=== PATIENT | male | born 2000 ===

== ENCOUNTER 2021-12-16 15:14 | Emergency (ER) | payer OTHER ==
--- NOTE | 2021-12-16 16:59 | ED Physician Documentation ---
PD HPI HEADACHE - Stated complaint Stated Complaint: MIGRAINE - Chief complaint Chief Complaint: Neuro - History obtained from History obtained from: Patient - History of Present Illness Timing - onset: Today Timing - onset during: Sleep Timing - duration: Hours Timing - details: Abrupt onset, Still present Worst headache ever?: No: Worst headache ever? Location: Front, Right Quality: Throbbing Associated symptoms: Nausea. No: Fever, Stiff neck, Vomiting, Weakness, Numbness, Syncope, Seizure, Eye pain, Vision changes Improved by: Rest Worsened by: Light, Noise, Moving Contributing factors: No: Anticoagulated Similar symptoms before: Diagnosis (migraine) Recently seen: Not recently seen - Additional information Additional information: 21-year-old male with history of migraine headaches has developed a migraine this morning behind his left eye with some dull ache. He has some mild nausea he has not vomited. He usually has some Imitrex to take and he has not had this medication for some time. He called the nurse hotline was asked to come to the emergency department. The patient states that if he was not told that he would have stayed at home and try to sleep this off. Review of Systems Constitutional: denies: Fever Eyes: reports: Photophobia. denies: Decreased vision Ears: denies: Ear pain Nose: denies: Congestion Throat: denies: Sore throat Respiratory: denies: Cough GI: reports: Nausea. denies: Vomiting PD PAST MEDICAL HISTORY - Past Medical History Past Medical History: No - Past Surgical History Past Surgical History: No - Present Medications Home Medications: Ambulatory Orders Medication Instructions Recorded Confirmed Dextroamphetamine/Amphetamine 25 mg ORAL DAILY 12/16/21 12/16/21 [Adderall 12.5 mg Tablet] SUMAtriptan [Imitrex] 25 mg PO ONCE PRN #13 tablet 12/16/21 - Allergies Allergies/Adverse Reactions: Allergies Allergy/AdvReac Type Severity Reaction Status Date / Time No Known Drug Allergies Allergy Verified 12/16/21 15:24 - Social History Does the pt smoke?: No Smoking Status: Never smoker PD ED PE NORMAL - Vitals Vital signs reviewed: Yes (Hypertensive mild) - General General: Alert and oriented X 3, No acute distress, Well developed/nourished - HEENT HEENT: Atraumatic, PERRL, EOMI, Ears normal - Neck Neck: Supple, no meningeal sign, No bony TTP - Cardiac Cardiac: RRR, No murmur - Respiratory Respiratory: No respiratory distress, Clear bilaterally - Abdomen Abdomen: Soft, Non tender - Back Back: No CVA TTP, No spinal TTP - Derm Derm: Normal color, Warm and dry, No rash - Extremities Extremities: No deformity, No edema - Neuro Neuro: Alert and oriented X 3, apprentice pattern maker 2-12 intact, No motor deficit, No sensory deficit, Normal speech Eye Opening: Spontaneous Motor: Obeys Commands Verbal: Oriented GCS Score: 15 - Psych Psych: Normal mood, Normal affect Results - Vitals Vitals: Vital Signs - 24 hr 12/16/21 15:24 Temperature 36.1 C L Heart Rate 70 Respiratory 16 Rate Blood Pressure 128/82 H O2 Saturation 100 Oxygen O2 Source Room air PD MEDICAL DECISION MAKING - ED course Complexity details: considered differential, d/w patient ED course: 21-year-old male with a history of migraines has a migraine headache today and he is out of his Imitrex. He would prefer to have a prescription for his Imitrex and return home to sleep this off. Departure - Departure Disposition: 01 Home, Self Care Clinical Impression: Migraine Qualifiers: Migraine type: with aura Status migrainosus presence: without status migrainosus Intractability: not intractable Qualified Code(s): G43.109 - Migraine with aura, not intractable, without status migrainosus Condition: Stable Instructions: ED Headache Migraine Follow-Up: [facility] [Provider Group] Prescriptions: SUMAtriptan [Imitrex] 25 mg PO ONCE PRN #13 tablet PRN Reason: Headache Comments: Max, today it looks like you have a migraine headache and we have E scribed Imitrex to the [facility] in [place]. Forms: Activity restrictions
[2021-12-16 17:12] VITALS: BP 126/80
== END 2021-12-16 17:11 | disposition home or self-care (01) ==
LOC: ED 15:14
DX: G43.109 Migraine with aura, not intractable, without status migrainosus (principal)
CPT/HCPCS: 99282; 99284

== ENCOUNTER 2022-10-12 14:03 | Outpatient (CLI) | payer OTHER ==
[2022-10-12 21:38] VITALS: BP 128/72
--- NOTE | 2022-10-12 21:38 | SLEEP CARE CONSULTATION ---
Information from patient questionnaire entered by Jenna Leach. I have reviewed and concur with the information entered by Jenna Leach. This document represents the service I personally performed and the decisions made by me, Rex Mejía MD, [facility]. History of Present Illness Service Date and Time: 10/12/2022 1403 Reason for Visit: New patient Chief Complaint: reports: Insomnia, Unrefreshed sleep, Observed pauses in breathing Date of Onset: 2013 Usual bedtime: 1-2AM Time it takes to fall asleep: NOT SURE Snores at night: Yes Sleeps alone due to snoring: No Number of times waking at night: 1-2 Reasons for waking at night: reports: Other (NOISE DRY MOUTH UNKNOWN REASONS) Toss, Turn, or Twitch while sleeping: Yes Recalls having dreams: No Usually gets out of bed at: 10AM-12PM Feels refreshed in the morning: No Morning headache: Yes Sleepy or fatigued during the day: Yes Ever fallen asleep while driving: No Takes day naps: Yes Dreams during day naps: No Prior sleep studies: No Additional HPI information: I had the pleasure of seeing Mr. Chacon today regarding the possibility of him having a sleep disorder. As you know, he is a 22-year-old gentleman who complains of insomnia, observed apneas, and unrefreshed sleep for the past 5 years. The patient works shift. The patient tells me that he normally goes to bed and wakes up variable times. He has been told that he snores loudly and irregularly at night. He has also been observed to stop breathing in his sleep. His can still sleep in the same bed. He can recall waking up on the average of 1 - 2 times during the night. Most of the time he wakes up because of dry mouth. He has awakened occasionally because of his own snoring, choking, and having to gasp for air. There is a lot of tossing and turning in his sleep. No somniloquy (sleep talking) or somnambulism (sleep walking). Generally, there is no recollection of dreams. He usually does have a morning headache. During the day he complains of feeling sleepy and fatigued. His score on Hermitage Sleepiness Scale is 12 out of 24. He never has fallen asleep while driving nor has had any accident due to sleepiness. He usually takes naps during the day. Upon falling asleep during the day he denies having vivid dreams. He has never had sleep paralysis, experienced cataplexy or symptoms of restless leg syndrome. He reports having impaired concentration during the day. - Parasomnia Symptoms Ever been unable to move upon waking from sleep: No Walks in sleep: No Talks in sleep: No Ever acted out dreams in sleep: No Ever felt weak in the knees when startled or emotional: No Bothered by creepy, crawly, restless sensations in legs: No Problems with memory or concentration: Yes Subjective Initial Hermitage Sleepiness Scale score: 12 (10/12/2022) Past Medical History Past Medical History: reports: Attention deficit Social History The patient's occupation is a [employer]. Patient is and lives in . Have you smoked in the past 12 months: Yes Cigarettes per day (20/pack): 5 Years of smokin Smoking Pack Years: 0.4 Alcohol use: Yes Alcohol amount and frequency: 2-3 SHOTS EVERY OTHER DAY Caffeine use: Yes Caffeine amount and frequency: 1-2 REDBULL DAILY Family History Family history of sleep disordered breathing: Yes Family Hx Sleep Apnea: Mother: Snoring Allergies and Home Medications Known drug allergies: No Drug allergies reviewed: Yes Home medication list reviewed: Yes Allergy and home medication list: Allergies No Known Drug Allergies Allergy (Verified 12/16/21 15:24) Review of Systems Cardiovascular: denies: high blood pressure, palpitations, chest pain, irregular heart rate or pulse, leg or foot swelling, have to sleep sitting up, other Respiratory: denies: shortness of breath, wheeze, sputum production, chronic cough, other Gastrointestinal: denies: heartburn, difficulty swallowing, nausea, vomitting, diarrhea, abdominal pain, other Urinary: denies: incontinence, frequency, urgency, impotence, other Neurological: denies: headaches, seizure, head trauma, disorientation, speech dysfunction, gait or balance problems, fainting or unconsciousness, other Psychiatric: reports: Attention Deficit Hyperactivity Ear/Nose/Throat: denies: nasal congestion, sinus problems, nose bleeds, dry mouth/throat, hoarseness, injury to nose, tonsillectomy, wisdom teeth removed, other Endocrine: denies: thyroid disease, history of goiter, sluggishness, too hot or cold, excessive thirst, increased appetite, increased urination, unexplained weakness, other Musculoskeletal: denies: joint pain, neck pain, back pain, joint swelling, muscle pain or cramping, mobility problems, other Immunologic: denies: sneezing, rash, itching, allergies to food or environment, other Physical Exam Vital signs obtained and entered by: JENNA Sanchez MA Blood Pressure: 128/72 (LEFT ARM) Cuff size: regular Heart Rate: 101 O2 Saturation: 97 Height: 5 ft 9 in Weight: 193 lb Body Mass Index: 28.5 BMI Classification: Overweight Neck circumference: 16.5 Mood/affect: normal HEENT: No craniofacial malformation Nostrils: partially obstructed Turbinates: normal Septum: midline Mouth and throat: narrow oropharynx Soft palate: long Hard palate: normal Uvula: normal Uvula visualization: 50% Mallampati Class II Tongue: normal in size Tonsils: small Chin and jaw: Retrognathia Neck: normal w/o lymphadenopathy or thyromegaly Heart: regular rate and rhythm Lungs: clear bilaterally Extremities: no edema or clubbing Neurologic: intact Impression and Plan IMPRESSION: 1. Obstructive Sleep Apnea-Hypopnea Syndrome, as suggested by history of loud and irregular snoring, unrefreshed sleep, morning headache, cognitive impairment, and daytime hypersomnolence. Narrow oropharynx and obesity are common predisposing factors for obstructive sleep apnea-hypopnea syndrome. I recommend proceeding to polysomnography to confirm the diagnosis and to assess severity. I informed the patient of what the sleep studies involve and after some discussion, he agreed to proceed. Plan: 1. Schedule an in-laboratory polysomnography. 2. Avoid long distance driving or when feeling sleepy. 3. Avoid alcohol, sedative and muscle relaxant around bedtime. 4. Attempt to lose weight. 5. Return for follow up after the sleep study. Follow up with Sleep Care in: 1-2 months Visit Type: In Office Time Spent with Patient (minutes): 15 Provider Statement: I spent 100% of the Face to Face Visit with the patient with greater than 50% spent counseling the patient and coordination of care.
== END 2022-10-12 14:04 | disposition home or self-care (01) ==
LOC: SC 14:03
PROVIDERS: ATTEND Internal Medicine Pulmonary Disease
DX: R06.83 Snoring (principal); G47.8 Other sleep disorders; R51.9 Headache, unspecified; R41.89 Other symptoms and signs involving cognitive functions and awareness; F17.200 Nicotine dependence, unspecified, uncomplicated; G47.10 Hypersomnia, unspecified
CPT/HCPCS: 99202; 99212

== ENCOUNTER 2022-11-05 20:22 | Outpatient (CLI) | payer OTHER | END 2022-11-05 20:23 | disposition home or self-care (01) | LOC: SC 20:22 | PROVIDERS: ATTEND Nurse Practitioner Family | DX: R06.83 Snoring (principal); R41.89 Other symptoms and signs involving cognitive functions and awareness; R53.83 Other fatigue; G47.8 Other sleep disorders; R51.9 Headache, unspecified; G47.10 Hypersomnia, unspecified | CPT/HCPCS: 95810 ==

== ENCOUNTER 2022-12-02 13:57 | Outpatient (CLI) | payer OTHER ==
[2022-12-02 15:03] VITALS: BP 122/60
--- NOTE | 2022-12-02 15:03 | SLEEP CARE CONSULTATION ---
Information from patient questionnaire entered by Kibmerly Leach. I have reviewed and concur with the information entered by Kimberly Leach. This document represents the service I personally performed and the decisions made by , Roseanne Moreno ARNP. History of Present Illness Service Date and Time: 12/02/2022 1355 Initial Simpson Sleepiness Scale score: 12 (10/12/2022) Current Simpson Sleepiness Scale score: 14 (12/02/22) Additional HPI information: AINSLEY ARIZA returns for follow up and results of the recently performed polysomnography. The patient was informed of the following findings: No significant sleep disordered breathing with an average AHI of 0.9 and geovanni oxygen saturation of 93%. I explained the pathophysiology behind obstructive sleep apnea. Patient does not have sleep apnea and was advised how weight gain could increase the risk of developing sleep apnea in the future. I strongly encouraged the patient to lose weight. Patient has light snoring. Snoring can be reduced by weight loss. Weight loss is best achieved with diet consult. Patient instructed to contact PCP for referral. Snoring can also be treated with an oral appliance from a dentist. Advised to check insurance coverage. In addition, an ENT evaluation can be do to see if other treatment is indicated. Patient was cautioned about risks of drowsy driving until sleepiness symptoms resolve. Sleep Study - Results Type of Sleep Study: Polysomnography (COMPLETED 11/05/22) Prior sleep studies: No Polysomnography/Home Sleep Study results: IMPRESSION: The quality of the study is good. The patient had reduced sleep efficiency due to a prolonged awakening in the first half of the night. The sleep architecture was relatively normal considering the first-night effect.. Respiratory monitoring showed no significant sleep disordered breathing (AHI = 0.9) or hypoxia (geovanni oxygen saturation of 93%). The patient slept mostly supine (supine AHI = 1.3; non-supine = 0.00). Snore was light and only during supine sleep. There was no significant periodic leg movement of sleep. Cardiac rhythm was normal sinus rhythm without significant arrhythmia. No abnormal behavior (parasomnia) observed during the night. Allergies and Home Medications Drug allergies reviewed: Yes (NKDA) Home medication list reviewed: Yes (no changes) Review of Systems Review of systems same as previous: Yes (no changes) Physical Exam Vital signs obtained and entered by: KIMBERLY C, MA Blood Pressure: 122/60 (LEFT ARM) Cuff size: regular Heart Rate: 90 O2 Saturation: 98 Height: 5 ft 9 in Weight: 192 lb 9.6 oz Body Mass Index: 28.4 BMI Classification: Overweight Impression and Plan 1. Insomnia, unspecified with excessive daytime sleepiness. His sleep study showed no significant sleep disordered breathing. He still has complaints of having difficulty waking up. 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 He will stay up till 1-2 AM and then tries to go to sleep. He will wake up 1-2 times a night. He has had times when he will wake up to get up for day and fall back to sleep quickly without meaning to go back to sleep (he will do this repeatedly and then be late for work). He wants to figure out what is wrong with his sleep so he can be more awake during his day. Insomnia is generally caused by an irregular sleep schedule, spending too much time in bed, napping, caffeine, electronics, lack of a relaxing bedtime ritual and clock watching. Other factors can include anxiety/depression, pain, medications, and obstructive sleep apnea. A sleep diary will be completed for the next 2 weeks to assist implementation of recommendations and for further evaluation of sleep concerns. * Fill out 2 weeks of sleep diary before follow up * The patient is cautioned about driving until sleepiness is completely resolved. * Return in 1-2 months for follow up. Counseling Topics: Weight loss health impact Visit Type: In Office Time Spent with Patient (minutes): 20 Provider Statement: I spent 100% of the Face to Face Visit with the patient with greater than 50% spent counseling the patient and coordination of care.
== END 2022-12-02 13:58 | disposition home or self-care (01) ==
LOC: SC 13:57
PROVIDERS: ATTEND Nurse Practitioner Family
DX: G47.00 Insomnia, unspecified (principal); G47.10 Hypersomnia, unspecified; E66.3 Overweight; Z68.28 Body mass index [BMI] 28.0-28.9, adult
CPT/HCPCS: 99212; 99213